=== PATIENT | female | born 1990 ===

== ENCOUNTER 2021-08-23 18:00 | Emergency (ER) | payer SELFPAY ==
[~2021-08-23] VITALS: Ht 157.5 cm; Wt 50.0 kg
[~2021-08-23 18:00] MED LIST: BCP TD; DEPO-PROVER150 MG/M1 IM; NO HOME MEDICATIONS
[2021-08-23 18:47] LABS: BASO % 0.7 % (0.0-2.0); EOS # 0.1 K/mm3 (0.0-0.7); EOS % 1.7 % (0.0-4.0); GRAN # 3.6 K/mm3 (1.4-6.5); GRAN % 66.6 % (42.2-75.2); HEMOGLOBIN 11.2 g/dl (12.5-16.0); LYMPH # 1.3 K/mm3 (1.2-3.4); LYMPH % 23.2 % (20.0-51.0); MEAN CELL VOLUME 101 fl (80.0-100.0); MEAN CORPUSCULAR HEMOGLOBIN 34 pg (27-31); MEAN CORPUSCULAR HGB CONC 33 g/dl (33.0-37.0); MEAN PLATELET VOLUME 9.3 fl (7.4-10.4); MONO # 0.4 K/mm3 (0.1-0.6); MONO % 7.6 % (1.7-9.3); PLATELET COUNT 247 K/mm3 (130-400); RED BLOOD COUNT 3.34 M/mm3 (4.10-5.30); REDCELL DISTRIBUTION WIDTH-CV 13.8 % (11.5-14.5)
[2021-08-23 18:48] LABS: HEMATOCRIT 33.8 % (37.0-47.0)
[2021-08-23 19:36] LABS: BILIRUBIN,TOTAL 0.4 mg/dL (0.2-1.2); CALCIUM 9.3 mg/dL (8.4-10.2); CREATININE, serum 0.78 mg/dL (0.57-1.11); TOTAL PROTEIN 7.2 gm/dL (6.2-8.1)
[2021-08-23 20:15] LABS: COLLECTION METHOD CLEAN CATCH
[2021-08-23 20:23] LABS: PH 6 (5-8); URINE APPEARANCE Clear (CLEAR/HAZY); URINE BACTERIA None Seen /hpf (NONE SEEN); URINE BILIRUBIN Negative (NEGATIVE); URINE BLOOD Negative (NEGATIVE); URINE COLOR Yellow (YELLOW); URINE GLUCOSE Negative (NEGATIVE); URINE KETONE Negative (NEGATIVE); URINE LEUKOCYTE ESTERASE Negative (NEGATIVE); URINE NITRATE Negative (NEGATIVE); URINE PROTEIN(semi-quant) Negative (NEGATIVE); URINE RBC None Seen /hpf (0-2); URINE UROBILINOGEN Negative (NEGATIVE)
[2021-08-23 20:36] LABS: TRICYCLIC ANTIDEPRESS URINE NEGATIVE
[2021-08-23 20:39] VITALS: BP 103/73; PULSE 84
== END 2021-08-23 20:43 | disposition home or self-care (01) ==
LOC: COL.ER 18:00
PROVIDERS: Nurse Practitioner Primary Care
DX: F10.229 Alcohol dependence with intoxication, unspecified (principal); R10.31 Right lower quadrant pain; R23.4 Changes in skin texture; F17.210 Nicotine dependence, cigarettes, uncomplicated; Z28.310 Unvaccinated for COVID-19; Y90.6 Blood alcohol level of 120-199 mg/100 ml
CPT/HCPCS: J1885; J7030